=== PATIENT | female | born 2000 | race American Indian/Alaskan Native ===

== ENCOUNTER 2023-06-17 20:19 | Emergency (ER) | payer MEDICAID, SELFPAY ==
[2023-06-17] VITALS (13 sets, daily range): BP systolic 114–135; BP diastolic 55–66; PULSE 78–109; RESP 16–22; TEMP 36.6; O2SAT 98–100; BMI 22.1
--- NOTE | 2023-06-17 20:24 | DI.RAD.S_ITS ---
PROCEDURE: XR PELVIS 1-2V INDICATIONS: trauma TECHNIQUE: 1 view(s) of the pelvis acquired. COMPARISON: None. FINDINGS: Bones: No fractures or dislocations. No suspicious bony lesions. Soft tissues: Visualized bowel gas pattern is normal. No suspicious soft tissue calcifications. IMPRESSION: No acute bony abnormality. Dictated by: Delano Rhoades M.D. on 06/17/2023 at 20:38 Approved by: Delano Rhoades M.D. on 06/17/2023 at 20:39
--- NOTE | 2023-06-17 20:24 | DI.RAD.S_ITS ---
PROCEDURE: XR LUMBAR SPINE 2-3V INDICATIONS: trauma TECHNIQUE: 3 views of the lumbar spine were acquired. COMPARISON: None. FINDINGS: Bones: 5 [id number] vertebrae are present. There is normal bony alignment. No vertebral body compression fractures. No suspicious bony lesions. Soft tissues: Overlying bowel gas pattern is normal. No suspicious soft tissue calcifications. IMPRESSION: No acute, displaced fracture or traumatic subluxation. Dictated by: Delano Rhoades M.D. on 06/17/2023 at 20:39 Approved by: Delano Rhoades M.D. on 06/17/2023 at 20:40
--- NOTE | 2023-06-17 20:25 | PC.NURSE ---
Patient c/o pain to pelvis, worse with movement. Patient with decreased strength to RLE, equal sensation and pulses. Patient with abrasion to right side of low back. Patient hit posterior aspect of head, denies LOC, denies c-spiner tenderness. Dr. Castillo at bedside, clears c-spine, c-collar removed. Patient log rolled and backboard removed.
--- NOTE | 2023-06-17 20:26 | ED.BACK ---
HPI - Back Pain/Injury General Chief Complaint: Trauma Stated Complaint: Fall, back pain, in C collar History of Present Illness HPI Narrative: Patient was walking down some stairs while carrying her 2-year-old child. She slipped on the stairs and fell onto her back and had and slid down the rest of the stairs. She has acute pain in the low back. Some pain in her right ankle she denies head pain or neck pain. She denies any chronic illnesses. She has no anticoagulant medications. She denies any other acute health conditions. Related Data Allergies Allergy/AdvReac Type Severity Reaction Status Date / Time No Known Drug Allergies Allergy Verified 06/17/23 20:27 Patient History Social History Smoking Status: Current every day smoker Exam Narrative Exam Narrative: GENERAL: Alert, cooperative and in no distress. HEAD: Atraumatic. Normocephalic. EYES: Sclera are clear without icterus. Extraocular movements are full. ENT: No rhinorrhea. Oropharynx is moist. Mouth exam is benign. NECK: Supple. Full range of motion. Full painless range of motion of the neck. No midline tenderness to the neck. CARDIOVASCULAR: Normal rate and rhythm without murmur gallop or rub. RESPIRATORY: Clear to auscultation. Breath sounds equal bilaterally. No wheezes, rales, or rhonchi. GASTROINTESTINAL: Abdomen soft, non-tender, nondistended. EXTREMITIES: No edema, full range of motion. No obvious trauma. Upper extremities are uninjured. BACK: Normal inspection, no CVA tenderness. No spinous process tenderness at the cervical spine or thoracic spine. Some spinous process tenderness between L3 and S1. She has tenderness at the SI joints bilaterally she also has an abrasion to the right of the midline at about the L1-2 3 region. Her pelvis is stable on careful examination but she reports pain when I put lateral pressure on her pelvis. With internal and external rotation of the hips she reports pelvic pain. She has full range of motion of the hips and knees and ankles bilaterally. I perceive no deformity or crepitus or swelling or injury to the right ankle where she reports some degree of pain. NEURO: Nonfocal examination, normal speech, normal gait. SKIN: No rash or erythema of visible areas PSYCH: Normally oriented. Normal range of affect. Appropriate behavior Initial Vital Signs Initial Vital Signs: Vital Signs Pulse Rate 87 06/17/23 20:26 Respiratory Rate 16 06/17/23 20:26 Blood Pressure 124/58 L 06/17/23 20:26 Pulse Oximetry 100 06/17/23 20:26 Oxygen Delivery Method Room Air 06/17/23 20:26 Course Orders Ordered: ED Orders 06/17/23 20:24 XR lumbar spine 2-3V Stat XR pelvis 1-2V Stat 06/17/23 21:23 Urinalysis and Microscopic Stat Discontinued Medications Acetaminophen (Acetaminophen 325 Mg Tablet) 975 mg PO NOW ONE Stop: 06/17/23 20:25 Last Admin: 06/17/23 21:11 Dose: 975 mg Documented By: CHRISTIANNE Ketorolac Tromethamine (Ketorolac 30 Mg/Ml Vial) 15 mg IM NOW ONE Stop: 06/17/23 20:25 Last Admin: 06/17/23 20:33 Dose: Not Given Documented By: ROSALBA Ketorolac Tromethamine (Ketorolac 30 Mg/Ml Vial) 15 mg IV NOW ONE Stop: 06/17/23 20:33 Last Admin: 06/17/23 20:33 Dose: 15 mg Documented By: ROSALBA Vital Signs Vital signs: Vital Signs - 8 hr 06/17/23 20:26 06/17/23 20:27 06/17/23 20:33 Temperature 97.9 F Pulse Rate 87 109 H Respiratory Rate 16 22 Blood Pressure 124/58 L 135/60 Pulse Oximetry 100 100 100 Oxygen Delivery Method Room Air Room Air 06/17/23 20:34 06/17/23 20:34 06/17/23 20:35 Temperature Pulse Rate 88 Respiratory Rate Blood Pressure 124/58 L 125/59 L Pulse Oximetry 100 Oxygen Delivery Method 06/17/23 20:35 06/17/23 20:40 06/17/23 20:40 Temperature Pulse Rate 85 84 Respiratory Rate 16 Blood Pressure 126/55 L Pulse Oximetry 100 100 Oxygen Delivery Method 06/17/23 20:45 06/17/23 20:45 06/17/23 20:50 Temperature Pulse Rate 83 Respiratory Rate Blood Pressure 122/56 L 124/58 L Pulse Oximetry 100 Oxygen Delivery Method 06/17/23 20:50 06/17/23 20:55 06/17/23 20:55 Temperature Pulse Rate 83 89 Respiratory Rate Blood Pressure 117/57 L Pulse Oximetry 100 99 Oxygen Delivery Method 06/17/23 21:00 06/17/23 21:00 06/17/23 21:22 Temperature Pulse Rate 81 Respiratory Rate 16 Blood Pressure 120/56 L 124/66 Pulse Oximetry 99 Oxygen Delivery Method 06/17/23 21:22 06/17/23 21:30 06/17/23 21:30 Temperature Pulse Rate 82 82 Respiratory Rate Blood Pressure 114/61 Pulse Oximetry 98 99 Oxygen Delivery Method 06/17/23 21:45 06/17/23 21:45 Temperature Pulse Rate 78 Respiratory Rate Blood Pressure 115/57 L Pulse Oximetry 98 Oxygen Delivery Method MDM - Back Pain/Injury Lab Data Labs: Urine Dip Bedside Urine Glucose Negative Bedside Urine Bilirubin - Negative Bedside Urine Ketone - Negative Urine Specific [place] 1.015 Bedside Urine Occult Blood - Negative Bedside Urine pH 7 Bedside Urine Protein - Negative Bedside Urine Urobilinogen - Negative Bedside Urine Nitrite - Negative Bedside Urine Leukocytes - Negative Esterase Imaging Data Extremity x-ray #1: Radiologist's Impression: Lumbar spine and pelvis plain films are negative for acute injury Discharge Plan Departure Patient Disposition: Home Clinical Impression: Contusion of back, Contusion of sacrum, Contusion of ankle, right, Fall Instructions: DI for Trauma Activity Restrictions/Additional Instructions: Thank you for trusting us with your care. I am sorry the fell tonight. I am so glad your baby is okay. I think that you are going to be okay in a few days as well. I recommend Tylenol 1000 mg taken together with ibuprofen 600 mg every 6 hours as needed for pain. Gentle range of motion movements are safe and appropriate. Return to the ED for new or worsening symptoms or if your symptoms are not mostly resolved within a few days. Stand Alone Forms: Patient Portal/API
[2023-06-17] MEDS: KETOROLAC 30 MG/ML VIAL 15 MG IV (20:33)
[2023-06-17] MEDS: ACETAMINOPHEN 325 MG TABLET 975 MG PO (21:11)
--- NOTE | 2023-06-17 21:22 | PC.NURSE ---
Patient ambulated to bathroom, steady gait, moving all extremities appropriately. Patient provides urine sample, denies pain or difficulty with urination.
== END 2023-06-17 22:09 | disposition home or self-care (01) ==
PROVIDERS: Emergency Provider Family Medicine Addiction Medicine
DX: S30.0XXA Contusion of lower back and pelvis, initial encounter (principal); S90.01XA Contusion of right ankle, initial encounter; W01.0XXA Fall on same level from slipping, tripping and stumbling without subsequent striking against object, initial encounter
CPT/HCPCS: 72100; 72170; 81003; 96374; 99284; J1885